=== PATIENT | male | born 1950 | race Caucasian/White ===

== ENCOUNTER 2016-09-24 12:03 | Emergency (ER) | payer OTHER ==
[~2016-09-24] VITALS: Ht 175.3 cm; Wt 63.5 kg
--- NOTE | 2016-09-24 12:08 | NUR ---
AALIT3, PAN FROM [facility] FOR DIZZINESS. 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 SKIN IS WARM AND DRY. RESP IS EVEN AND UNLABORED WITH NAD NOTED. ASSISTED TO HOSPITAL GOWN. PLACED ON MONITOR. AWAITING MD FOR EVAL.
--- NOTE | 2016-09-24 12:18 | NUR ---
PATIENT DENIES ANY CHEST PAIN.
[2016-09-24] MEDS ORDERED: AMIT100T2 PO (12:19)
[2016-09-24] MEDS ORDERED: LISI-607 PO (12:19)
[2016-09-24] MEDS ORDERED: CLON1TAB4 PO (12:19)
[2016-09-24] MEDS ORDERED: PRAV40TA3 PO (12:19)
[2016-09-24] MEDS ORDERED: OMEG-11 PO (12:19)
[2016-09-24] MEDS ORDERED: ACYC800T PO (12:19)
[2016-09-24] MEDS ORDERED: ASPI81TA2 PO (12:19)
[2016-09-24] MEDS ORDERED: RALT400T PO (12:19)
[2016-09-24] MEDS ORDERED: DARU600T4 PO (12:19)
[2016-09-24] MEDS ORDERED: SERT50TA PO (12:19)
[2016-09-24] MEDS ORDERED: ETRA200T PO (12:19)
[2016-09-24] MEDS ORDERED: IV SET PRIMARY PUMP SET 1 EA INFUS.SET MC ONE (12:30)
[2016-09-24] MEDS ORDERED: IV NS 0.9% 1,000 ML BAG IV ONE (12:30)
[2016-09-24] MEDS ORDERED: IV NS 0.9% 1,000 ML ONE (12:30)
--- NOTE | 2016-09-24 12:42 | NUR ---
REPORT GIVEN TO ISA GLEASON FOR NOHEMI.
[2016-09-24 12:48] LABS: BASOPHILS % (AUTO) 0.5 % (0.0-2.0); EOSINOPHILS # (AUTO) 0.1 /CMM (0.0-0.7); EOSINOPHILS % (AUTO) 1.6 % (0.0-6.0); HEMATOCRIT 35 % (39-51); LYMPHOCYTES # (AUTO) 1.3 /CMM (0.8-4.8); LYMPHOCYTES % (AUTO) 30.5 % (20.0-44.0); MEAN CORPUSCULAR HEMOGLOBIN 32 PG (26.0-33.0); MEAN CORPUSCULAR HGB CONC 35 g/dl (31.0-36.0); MEAN CORPUSCULAR VOLUME 92 fL (80-96); MONOCYTES # (AUTO) 0.4 /CMM (0.1-1.30); MONOCYTES % (AUTO) 10.2 % (2.0-12.0); NEUTROPHILS # (AUTO) 2.5 /CMM (1.8-8.9); NEUTROPHILS % (AUTO) 57.2 % (43.0-81.0); PLATELET COUNT (AUTO) 155 /CMM (150-450); RDW COEFFICIENT OF VARIATION 14.4 (11.5-15.0); RED BLOOD CELL COUNT(AUTO) 3.74 MIL/uL (4.5-6.0); WHITE BLOOD COUNT (AUTO) 4.3 K/uL (4.3-11.0)
[2016-09-24 12:58] LABS: CALCIUM, SERUM 9.4 mg/dL (8.5-10.1); CARBON DIOXIDE 30 mmol/L (21-32); CHLORIDE 100 mmol/L (98-107); CREATININE 1.6 mg/dL (0.6-1.3); GLUCOSE 88 mg/dL (74-106); POTASSIUM 5.1 mmol/L (3.5-5.1); SODIUM SERUM 134 mmol/L (136-145); UREA NITROGEN, BLOOD 27 mg/dL (7-18)
[2016-09-24 13:04] LABS: ALANINE AMINOTRANSFERASE 19 U/L (12-78); ALBUMIN 3.5 g/dL (3.4-5.0); ALKALINE PHOSPHATASE 64 U/L (46-116); ASPARTATE AMINOTRANSFERASE 20 U/L (15-37); BILIRUBIN,DIRECT 0.2 mg/dL (0.0-0.2); BILIRUBIN,TOTAL 0.6 mg/dL (0.2-1.0); TOTAL PROTEIN, SERUM 6.4 g/dL (6.4-8.2)
[2016-09-24 13:07] LABS: TROPONIN I < 0.017 ng/mL (0.00-0.056)
--- NOTE | 2016-09-24 13:33 | NUR ---
PT REPORT RECIEVD FROM [facility], PT IN BED ON MONITOR, PT STATES HE IS FEELING BETTER, PT FOOD TRAY IS THERE AND HE IS EATING, MD MADE AWARE WILL CONTINUE TO MONITOR.
--- NOTE | 2016-09-24 14:02 | NUR ---
IV removed. Catheter intact and site benign. Pressure and 4x4 applied to site. No bleeding noted.
--- NOTE | 2016-09-24 14:02 | NUR ---
Patient discharged to home in stable condition. Written and verbal after care instructions given. Patient verbalizes understanding of instruction.
[2016-09-24 14:03] VITALS: BP 113/56
== END 2016-09-24 14:04 | disposition home or self-care (01) ==
LOC: ER 12:05
DX: R55 Syncope and collapse (principal); I10 Essential (primary) hypertension; K74.60 Unspecified cirrhosis of liver; F17.200 Nicotine dependence, unspecified, uncomplicated; Z98.890 Other specified postprocedural states
CPT/HCPCS: 36415; 80048; 80076; 84484; 85025; 93005; 96360; 99285; A4606; J7030; Z7610